=== PATIENT | male | born 1995 | race African-American/Black ===

== ENCOUNTER 2017-11-15 10:33 | Emergency (ER) | payer OTHER, SELFPAY ==
[2017-11-15 10:42] VITALS: BP 142/80; PULSE 75; RESP 18; TEMP 38; O2SAT 98; BMI 39.1
--- NOTE | 2017-11-15 11:50 | [facility].EDURI ---
ED Disposition Clinical Impression: Influenza A Disposition: Home, Self-Care Condition on Discharge: Good Additional Instructions: Please alternate Motrin with Tylenol for fever control/body aches, drink plenty of fluids, take the medication prescribed as directed, follow-up with PCP if not better within 2 days. Prescriptions: Oseltamivir Phosphate [Tamiflu 75mg Capsule] 75 mg PO BID #10 cap Time of Disposition: 11:51 - Critical Care Critical Care Time: No Attestation: On 11/15/17, the high probability of a clinically significant, sudden or life threatening deterioration of the following system(s) required my full and direct attention, intervention and personal management. The time I documented below is in addition to time spent performing reported procedures but includes the following listed in this critical care notation. Medical Decision Making - Medical Records Medical records reviewed: Yes: I reviewed the patient's medical records. - Luis Inquiry Pt receiving controlled substance: No Vital Signs: 11/15/17 10:42 Temperature 100.4 F H Temperature Source Oral Pulse Rate [Right Brachial] 75 Respiratory Rate 18 Blood Pressure [Right Arm] 142/80 Blood Pressure Mean [Right Arm] 100 Blood Pressure Source [Right Arm] Automatic Cuff Blood Pressure Position [Right Arm] Sitting 02 Sat by Pulse Oximetry 98 Oxygen Delivery Method Room Air - Lab Data Lab results reviewed: Yes: I reviewed the patient's lab results. Lab Results 11/15/17 10:40: Influenza Type A Ag Positive A, Influenza Type B Ag Negative Orders (Tests/Meds): ORDERS Category Date Time Status Strep Scrn Group A (Rapid) Stat Lab 11/15/17 10:45 Ordered - Reevaluation(s) Time: 11:58 Reevaluation #1: Medically stable, in no acute distress. URI/Sore Throat HPI - General Chief Complaint: Upper Respiratory Infection Stated Complaint: runny nose Time Seen by Provider: 11/15/17 10:50 Mode of Arrival: Ambulatory Source of Information: Patient Limitations: No Limitations Description of Symptoms (Recalled from ER Triage Doc. by RN): sinus stuffiness, low grade fever - History of Present Illness MD Complaint: fever, cough, rhinorrhea, nasal congestion Onset (ago): day(s) (2) Duration: intermittent Severity: mild Severity scale (1-10): 2 Relieving factors: nothing Exacerbating factors: swallowing Description of mucous: watery Able to tolerate fluids by mouth: Yes Context: sick contacts Associated symptoms: fever, chills, rhinorrhea, nasal congestion - Related Data Previous Rx's Medication Instructions Recorded Oseltamivir Phosphate [Tamiflu 75 mg PO BID #10 cap 11/15/17 75mg Capsule] Allergies Allergy/AdvReac Type Severity Reaction Status Date / Time No Known Allergies Allergy Verified 11/15/17 10:45 [facility] History I have reviewed the patient's past medical history: Yes - Social History Educational Level: Completed High School Smoking Status: Unknown if ever smoked Tobacco Type: cigarettes Alcohol Intake: never - Psychiatric History Expresses thoughts of harming self/others: None Suicide Plan Description: No Plan ROS Obtained: Yes All systems reviewed & no additional complaints, Yes Systems reviewed as appropriate & no additional complaints - ENT Ears, Nose, Mouth, and Throat: Reports system reviewed and no additional complaints, except as docu, Reports as per HPI, Reports nasal congestion Physical Exam - General General appearance: alert, in no apparent distress - Head Head exam: atraumatic, normocephalic, normal inspection - ENT ENT exam: Present: other (Boggy nasal mucosa, yellowish nasal discharge) - Neck Neck exam: Present: normal inspection, full ROM, trachea midline. Absent: meningismus, lymphadenopathy - Chest Chest inspection: Present: normal inspection, symmetric chest wall rise. Absent: tenderness - Respiratory Respiratory exam: Present: normal lung sounds bilaterally
[2017-11-15 11:56] VITALS: BP 124/80; PULSE 82; RESP 18; TEMP 37.7; O2SAT 98
== END 2017-11-15 12:00 | disposition home or self-care (01) ==
PROVIDERS: Emergency Provider Emergency Medicine
DX: J10.1 Influenza due to other identified influenza virus with other respiratory manifestations (principal)
CPT/HCPCS: 87275; 87276; 99281; 99282